=== PATIENT | female | born 1975 | race Two or more races ===

== ENCOUNTER → 2018-01-24 | Emergency (ER) | payer OTHER ==
[~2018-01-24] VITALS: Ht 162.6 cm; Wt 83.9 kg
[~2018-01-24] MED LIST: NEURONTIN600 MG; OMEPRAZOLE20 MG; PROZAC10 MG
== END | disposition home or self-care (01) ==
LOC: ER 03:42
DX: M79.605 Pain in left leg (principal); M79.604 Pain in right leg; R60.0 Localized edema; I87.2 Venous insufficiency (chronic) (peripheral)